=== PATIENT | male | born 1990 | race Caucasian/White ===

== ENCOUNTER 2017-08-11 14:46 | Emergency (ER) | payer OTHER ==
[2017-08-11 16:22] LABS: BILIRUBIN,URINE NEGATIVE (NEGATIVE); GLUCOSE, URINE (UA) NEGATIVE (NEGATIVE); KETONES,URINE (UA) NEGATIVE (NEGATIVE); LEUKOCYTE ESTERASE, URINE NEGATIVE (NEGATIVE); NITRITE,URINE NEGATIVE (NEGATIVE); OCCULT BLOOD,URINE NEGATIVE (NEGATIVE); PROTEIN,URINE NEGATIVE (NEGATIVE); UROBILINOGEN,URINE 0.2 (NORMAL) E.U./dL (NORMAL)
[2017-08-11 16:27] LABS: CLARITY,URINE CLEAR (CLEAR)
--- NOTE | 2017-08-11 16:28 | ED Physician Documentation ---
PD HPI MALE - Stated complaint Stated Complaint: MALE - Chief complaint Chief Complaint: Abd Pain - History obtained from History obtained from: Patient, Family () - History of Present Illness Timing - onset: Yesterday (27-year-old gentleman with no history of STDs with a rash on his penis since yesterday and a swollen lymph node in the right groin with myalgias and chills. He is monogamous with his of 4 years.) Review of Systems Constitutional: reports: Chills, Myalgias, Fatigue. denies: Fever : denies: Dysuria, Frequency, Hesitancy PD PAST MEDICAL HISTORY - Past Medical History Cardiovascular: None Respiratory: None HEENT: None - Present Medications Home Medications: Ambulatory Orders Medication Instructions Recorded Confirmed Acyclovir 800 mg PO 5XD 10 Days tablet 08/11/17 - Allergies Allergies/Adverse Reactions: Allergies Allergy/AdvReac Type Severity Reaction Status Date / Time No Known Drug Allergies Allergy Verified 08/11/17 15:28 - Social History Does the pt smoke?: No Smoking Status: Never smoker PD ED PE NORMAL - Vitals Vital signs reviewed: Yes - General General: Alert and oriented X 3, No acute distress - Abdomen Abdomen: Soft, Non tender - Male Male : Other (Classic herpes rash right side of penile shaft with small R LAD. PCR collected from vesicles during exam.) - Derm Derm: Normal color, Warm and dry - Neuro Neuro: Alert and oriented X 3, Normal speech Results - Vitals Vitals: Vital Signs - 24 hr 08/11/17 15:27 Temperature 36.5 C Heart Rate 86 Respiratory 16 Rate Blood Pressure 158/94 H O2 Saturation 99 - Labs Labs: Laboratory Tests 08/11/17 16:10 Urine Color YELLOW Urine Clarity CLEAR Urine pH 6.0 Ur Specific [place] 1.015 Urine Protein NEGATIVE Urine Glucose (UA) NEGATIVE Urine Ketones NEGATIVE Urine Occult Blood NEGATIVE Urine Nitrite NEGATIVE Urine Bilirubin NEGATIVE Urine Urobilinogen 0.2 (NORMAL) Ur Leukocyte Esterase NEGATIVE Ur Microscopic Review NOT INDICATED Urine Culture Comments NOT INDICATED Departure - Departure Disposition: 01 Home, Self Care Clinical Impression: Genital herpes Qualifiers: Herpes simplex infection site: penis Qualified Code(s): A60.01 - Herpesviral infection of penis Condition: Good Record reviewed to determine appropriate education?: Yes Instructions: ED Herpes Simplex Virus Type 2 Prescriptions: Acyclovir 800 mg PO 5XD 10 Days tablet Comments: FOLLOWUP WITH YOUR DOCTOR ON BASE FOR LAB RESULTS IN ABOUT 1 WEEK Your blood pressure was elevated today on check into the emergency department. This does not mean that you have hypertension, it is a common phenomenon to come to the emergency department and have elevated blood pressure. I recommend that you see your primary care physician within the week to have it rechecked when you are feeling better.
[2017-08-11 16:54] VITALS: BP 148/93
[2017-08-13 11:31] LABS: HSV 1 IGG TYPE SPECIFIC AB <0.90 index
[2017-08-14 03:51] LABS: HSV 2 DNA DETECTED; SOURCE PENIS
== END 2017-08-11 17:13 | disposition home or self-care (01) ==
LOC: ED 14:46
DX: A60.01 Herpesviral infection of penis (principal); R03.0 Elevated blood-pressure reading, without diagnosis of hypertension
CPT/HCPCS: 81001; 81003; 86695; 86696; 87086; 87529; 99283